=== PATIENT | female | born 1990 | race Two or more races ===

== ENCOUNTER 2021-03-19 08:13 | Day surgery (SDC) | payer OTHER ==
[2021-03-11 14:58] LABS: BASOPHILS # (AUTO) 0.1 X10'3 (0-0.2); BASOPHILS % (AUTO) 0.5 % (0-1); EOSINOPHILS # (AUTO) 0.2 X10'3 (0-0.9); LYMPHOCYTES # (AUTO) 2.5 X10'3 (1.1-4.8); LYMPHOCYTES % (AUTO) 23.7 % (21-51); MEAN CORPUSCULAR HGB CONC 32.7 g/dL (33.0-36.5); MEAN CORPUSCULAR VOLUME 76.6 FL (78-98); MEAN PLATELET VOLUME 9.3 FL (7.4-10.4); MONOCYTES # (AUTO) 0.7 X10'3 (0-0.9); MONOCYTES % (AUTO) 6.3 % (2-12); NEUTROPHILS % (AUTO) 67.5 % (42-75); PRE OP HEMATOCRIT 40.8 % (35.0-45.0); PRE OP HEMOGLOBIN 13.3 g/dL (12.0-16.0); PRE OP PLATELET COUNT 309 X10'3 (140-440); RED BLOOD COUNT 5.32 X10'6 (4.20-5.60); RED CELL DISTRIBUTION WIDTH 14.8 % (11.5-14.5)
[2021-03-11 15:53] LABS: HCG SERUM QL NEGATIVE
[2021-03-19] VITALS (8 sets, daily range): BP systolic 99–125; BP diastolic 47–69
[~2021-03-19] VITALS: Ht 154.9 cm; Wt 109.5 kg
[~2021-03-19 08:13] MED LIST: ACET-890 PO; ALBU8.5H17 INH; DIPH25TA62 PO; albuterol 2.5 MG/3 ML nebule NEB PRN; cefazolin/dext.iso 2gm/100ml IV ONE; famotidine 20mg tablet PO ONE; ringers solution, lacted 1,000 ML IV SCH; vancomycin 1,500 MG in NS 300ml IV soln IV ONE
[2021-03-19] MEDS ORDERED: diphenhydrAMINE 50 mg/ml inj ONE ×2 (10:38→15:15)
--- NOTE | 2021-03-19 10:50 | NUR ---
CALLED TO ROOM PT C/O ITCHING ALL OVER NOTED WELPS ON HER FACE AND CHEEKS VANCO STOPPED, DR. NICHOLE NOTIFIED BENEDRYL 50MG IV GIVEN ORDERED, COOL COMPRESSES APPLIED, PT STATES FEELING BETTER. PHARMACY CONSULTED. WILL FOLLOW UP WITH DR. NICHOLE D/T THE REACTION BENEDRLY OVER RIDE IN THE [place]. PT IN NO DISTRESS. VSS Addendum: 03/19/21 at 1114 by Arin Dunn RN Amended: Links added.
[2021-03-19] MEDS ORDERED: triamcinolone acetonide 40mg/ml inj ONE (11:24)
[2021-03-19] MEDS ORDERED: BUPIVAcaine/PF 2.5 mg/ml (0.25%) 30ml vial ONE (11:24)
[2021-03-19] MEDS ORDERED: sevoflurane 250ml liquid IH ONE (12:10)
[2021-03-19] MEDS ORDERED: cloNIDine hcl/PF 100mcg/ml inj ONE (12:14)
[2021-03-19] MEDS ORDERED: fentaNYL/PF 50MCG/1 ML 2ML syringe ONE (12:15)
[2021-03-19] MEDS ORDERED: midazolam 1 mg/ML 2ml injection ONE (12:15)
[2021-03-19] MEDS ORDERED: dexamethasone sod phosphate 4mg/ml inj. ONE ×2 (12:43→12:44)
[2021-03-19] MEDS ORDERED: LIDOcaine 2% (20mg/ml) 5ml vial ONE (12:43)
[2021-03-19] MEDS ORDERED: LIDOcaine 1%/PF 5ML 10 MG/ML VIAL ONE (12:43)
[2021-03-19] MEDS ORDERED: rocuronium 10mg/ml inj IV ONE (12:43)
[2021-03-19] MEDS ORDERED: propofol inj 20 ML IV ONE (12:43)
[2021-03-19] MEDS ORDERED: ROPIVAcaine 0.5% (5mg/ml) 30ml vial ONE (12:44)
[2021-03-19] MEDS ORDERED: ondansetron/PF 4mg/2ml inj ONE (12:44)
[2021-03-19] MEDS ORDERED: morphine 4 MG/ML inj SYRINge IV PRN (13:05)
[2021-03-19] MEDS ORDERED: meperidine/PF 25mg/ml syringe IV PRN ×2 (13:05)
[2021-03-19] MEDS ORDERED: morphine 2 MG/ML inj. syringe IV PRN (13:05)
[2021-03-19] MEDS ORDERED: hydrALAZINE 20mg/ml inj. IV PRN (13:05)
[2021-03-19] MEDS ORDERED: ringers solution, lacted 1,000 ML IV SCH (13:05)
[2021-03-19] MEDS ORDERED: ondansetron/PF 4mg/2ml inj IV PRN (13:05)
[2021-03-19] MEDS ORDERED: labetalol 20mg/4ml (5mg/ml) syringe IV PRN (13:05)
[2021-03-19] MEDS ORDERED: proCHLORperazine 10 MG/2 ml inj IV PRN (13:05)
[2021-03-19] MEDS ORDERED: glycopyrrolate 0.2mg/ml inj ONE (13:42)
[2021-03-19] MEDS ORDERED: neostigmine methylsulfate 1 MG/ML 10ml vial ONE (13:42)
--- NOTE | 2021-03-19 14:02 | NUR ---
RECEIVED REPORT ASSUME CARE PT AROUSABLE TO NAME VSS NO DISTRESS, LEFT ARM IN SLING WITH DRESSING TO LEFT SOULDER CDI, ICE PK APPLIED, IV TO RH 20G PATIENT. CONT TO MONITOR Addendum: 03/19/21 at 1440 by Arin uDnn RN Amended: Links added.
[2021-03-19] MEDS: meperidine/PF 25mg/ml syringe IV PRN ×2 (14:14→14:34)
--- NOTE | 2021-03-19 14:55 | NUR ---
PT MORE AWAKE ALERT VSS ON RA SAT 96% SUSAN PO'S AND CRACKERS. Addendum: 03/19/21 at 1456 by Arin Dunn RN Amended: Links added.
[2021-03-19] MEDS ORDERED: diphenhydrAMINE 50 mg/ml inj IV ONE ×2 (15:15)
--- NOTE | 2021-03-19 15:20 | NUR ---
PT C/O ITCHING ALL OVER MED WITH BENEDRYL 25MG IV DC INSTR GIVEN NO ?'S OR CONCERNS MEETS CRITERIA TO GO HOME WITH FAMILY Addendum: 03/19/21 at 1537 by Arin Dunn RN Amended: Links added.
== END 2021-03-19 15:45 | disposition home or self-care (01) ==
LOC: PAS 08:13
PROVIDERS: ATTEND Orthopaedic Surgery
DX: M19.012 Primary osteoarthritis, left shoulder (principal); M75.42 Impingement syndrome of left shoulder; S46.012A Strain of muscle(s) and tendon(s) of the rotator cuff of left shoulder, initial encounter; M65.812 Other synovitis and tenosynovitis, left shoulder; M94.212 Chondromalacia, left shoulder; M75.52 Bursitis of left shoulder; M75.82 Other shoulder lesions, left shoulder; G89.18 Other acute postprocedural pain; F41.9 Anxiety disorder, unspecified; J45.909 Unspecified asthma, uncomplicated; E66.01 Morbid (severe) obesity due to excess calories; Z68.41 Body mass index [BMI] 40.0-44.9, adult; Z88.5 Allergy status to narcotic agent; Z88.8 Allergy status to other drugs, medicaments and biological substances; Z88.1 Allergy status to other antibiotic agents; Z79.899 Other long term (current) drug therapy; Z90.49 Acquired absence of other specified parts of digestive tract; Z20.822 Contact with and (suspected) exposure to COVID-19; X58.XXXA Exposure to other specified factors, initial encounter; Y93.89 Activity, other specified; Y92.89 Other specified places as the place of occurrence of the external cause; Y99.8 Other external cause status
CPT/HCPCS: 29820; 29823; 29824; 29826; 36415; 64415; 76942; 82948; 84703; 85025; 93005; 94640; 94760; J0735; J1100; J1200; J2001; J2175; J2250; J2405; J2704; J2710; J3010; J3301; J3370; J3490; J7040; U0003; U0005; Z7506; Z7508; Z7512; A4215; A4565; A4618; A6250; A6449; A7000; J2795; J7120